=== PATIENT | female | born 1960 | race African-American/Black ===

== ENCOUNTER 2016-09-30 14:45 | Emergency (ER) | payer MEDICAID, OTHER ==
[~2016-09-30] VITALS: Ht 172.7 cm; Wt 61.2 kg
[~2016-09-30 14:45] MED LIST: KEFLEX500 MG ORAL; TRAMADOL HCL50 MG ORAL
[2016-09-30] MEDS ORDERED: NKM (15:10)
--- NOTE | 2016-09-30 16:04 | Emergency Room Report ---
History of Present Illness General Chief Complaint: General Complaint Source: Patient Present Illness HPI This patient left prior to being seen/evaluated. Allergies: Coded Allergies: No Known Allergies (Unverified , 03/02/15) Nursing Documentation-[facility] Past Medical History: No Stated History Physical Exam Vital Signs Date Time Temp Pulse Resp B/P Pulse Ox O2 Delivery O2 Flow Rate FiO2 09/30/16 15:06 98.4 68 16 103/65 100 Room Air Medical Decision Making PA Attestation Dr. Mcgowan is my supervising Physician whom patient management has been discussed with. ER Course This patient left prior to being seen/evaluated. Last Vital Signs Date Time Temp Pulse Resp B/P Pulse Ox O2 Delivery O2 Flow Rate FiO2 09/30/16 15:06 98.4 68 16 103/65 100 Room Air Disposition: LEFT W/OUT BEING SEEN Condition: Unknown Indira Lugo Sep 30, 2016 16:04
[2016-09-30 22:52] VITALS: BP_SYST 1; BP_SYST 103; BP_DIAS 1; BP_DIAS 65
== END 2016-09-30 15:45 | disposition left against medical advice (07) ==
LOC: EMR 15:40
DX: Z53.21 Procedure and treatment not carried out due to patient leaving prior to being seen by health care provider (principal)
CPT/HCPCS: 99281

== ENCOUNTER 2019-03-09 16:22 | Emergency (ER) | payer MEDICAID ==
[~2019-03-09] VITALS: Ht 170.2 cm; Wt 56.7 kg
[~2019-03-09 16:22] MED LIST changes: +NKM
--- NOTE | 2019-03-09 16:27 | NUR ---
ED Nurse Note: CALLED PT FROM WAITING ROOM. PT IN RESTROOM.
[2019-03-09 16:40] VITALS: BP 102/55
--- NOTE | 2019-03-09 16:40 | NUR ---
ED Nurse Note: Patient walked in to ER due to painful lymph nodes on her left groin. She also stated that she's having an upper abdominal sharp pain. Afebrile. Alert and oriented, verbally responsive.
[2019-03-09] MEDS ORDERED: Ketorolac 30mg Inj IV ONE (17:15)
[2019-03-09] MEDS ORDERED: Isovue-300 100ml vial INJ PRN (17:15)
--- NOTE | 2019-03-09 17:25 | NUR ---
ED Nurse Note: Oral contrast finished at this time.
[2019-03-09 17:34] LABS: ANION GAP 8 mmol/L (5-15); BLOOD UREA NITROGEN 12 mg/dL (7-18); CALCIUM 9.9 MG/DL (8.5-10.1); CARBON DIOXIDE 27 MMOL/L (21-32); CHLORIDE 104 MMOL/L (98-107); CREATININE 0.8 MG/DL (0.55-1.30); POTASSIUM 3.6 MMOL/L (3.5-5.1); SODIUM 139 MMOL/L (136-145)
[2019-03-09 17:39] LABS: ALANINE AMINOTRANSFERASE 21 U/L (12-78); ALBUMIN 4.5 G/DL (3.4-5.0); ALBUMIN/GLOBULIN RATIO 1.1 (1.0-2.7); ALKALINE PHOSPHATASE 73 U/L (46-116); ASPARTATE AMINO TRANSFERASE 19 U/L (15-37); BILIRUBIN,TOTAL 0.5 MG/DL (0.2-1.0)
[2019-03-09 17:40] LABS: BASOPHILS % (AUTO) 1.3 % (0.0-2.0); HEMATOCRIT 36.8 % (37.0-47.0); HEMOGLOBIN 13.2 G/DL (12.0-16.0); LYMPHOCYTES % (AUTO) 40.1 % (20.0-45.0); MEAN CORPUSCULAR VOLUME 90 FL (80-99); NEUTROPHILS % (AUTO) 47.6 % (45.0-75.0); PLATELET COUNT 236 K/UL (150-450); RED CELL DISTRIBUTION WIDTH 10.1 % (11.6-14.8)
[2019-03-09 17:41] LABS: APPEARANCE,URINE CLEAR; BILIRUBIN, URINE NEGATIVE (NEGATIVE); COLOR,URINE YELLOW; GLUCOSE, URINE (UA) NEGATIVE (NEGATIVE); KETONES,URINE NEGATIVE (NEGATIVE); LEUKOCYTE ESTERASE ,URINE 1+ (NEGATIVE); NITRITE,URINE NEGATIVE (NEGATIVE); PH,URINE 6.5 (4.5-8.0); PROTEIN,URINE NEGATIVE (NEGATIVE); UROBILINOGEN,URINE 1 MG/DL (0.0-1.0)
--- NOTE | 2019-03-09 18:16 | Emergency Room Report ---
History of Present Illness General Chief Complaint: Skin Rash/Abscess Source: Patient Present Illness HPI 58 YO female presents to the ED C/O 04/04 in severity bilateral inguinal pain , Left greater than right with palpable swelling, and abdominal pain x 2 weeks. Progressive onset of pain. Denies suspicion of STI and states she is celibate. Reports fevers and chills. She also reports Nausea and weight loss. Denies vomiting, Diarrhea or constipation. Denies dysuria, Hematuria or frequency. Denies recent travel or ill contacts. Denies vaginal d/c. She is in 5th year of menopause and has both uterus and ovaries. Denies external genital lesions or rashes. Pt. denies low back pain. No other aggravating or relieving factors. She Denies PMhx. and states she is normally very healthy. She denies trauma or fall. Reports she does work out regularly. Allergies: Coded Allergies: No Known Allergies (Unverified , 03/02/15) Patient History Past Medical History: see triage record Past Surgical History: none Pertinent Family History: none Last Menstrual Period: 2017 Now: No Reviewed Nursing Documentation: PMH: Agreed; PSxH: Agreed Nursing Documentation-PMH Past Medical History: No Stated History Review of Systems All Other Systems: negative except mentioned in HPI Physical Exam Vital Signs Date Time Temp Pulse Resp B/P (MAP) Pulse Ox O2 Delivery O2 Flow Rate FiO2 03/09/19 16:39 99.0 64 16 102/55 (71) 98 Room Air Medical Decision Making PA Attestation Dr. Shen is my supervising Physician whom patient management has been discussed with. Diagnostic Impression: Primary Impression: Abdominal pain Qualified Codes: R10.30 - Lower abdominal pain, unspecified Additional Impression: Inguinal adenopathy ER Course 58 YO female presents to the ED C/O 04/04 in severity bilateral inguinal pain , Left greater than right with palpable swelling, and abdominal pain x 2 weeks. Progressive onset of pain. Denies suspicion of STI and states she is celibate. Reports fevers and chills. She also reports Nausea and weight loss. Denies vomiting, Diarrhea or constipation. Denies dysuria, Hematuria or frequency. Denies recent travel or ill contacts. Denies vaginal d/c. She is in 5th year of menopause and has both uterus and ovaries. Denies external genital lesions or rashes. Pt. denies low back pain. No other aggravating or relieving factors. She Denies PMhx. and states she is normally very healthy. She denies trauma or fall. Reports she does work out regularly. Ddx considered but are not limited to Diverticulitis, acute appy, diarrhea,UC, PUD, GE, pancreatitis, gallstone, ovarian torsion, ectopic , PID tubo-ovarian abscess. Vital signs: are WNL, pt. is afebrile H&PE are most consistent with [ ] ORDERS: -CBC, CMP, LIPASE: WNL -UA: WNL -LDH: WNL -TSH: WNL -CT Abdomen and Pelvis with Contrast IV and Oral. ED INTERVENTIONS: -Toradol IV - DISCHARGE: At this time pt. is stable for d/c to home. Will provide printed patient care instructions, and any necessary prescriptions. Care plan and follow up instructions have been discussed with the patient prior to discharge. CT/MRI/US Diagnostic Results CT/MRI/US Diagnostic Results : Imaging Test Ordered: CT Abdomen and Pelvis with Contrast IV and Oral Impression " No GI or urinary tract obstruction. Unremarkable appendix. Uterine calcifications, likely small fibroids" per official radiology report- Please see report for specific details. Last Vital Signs Date Time Temp Pulse Resp B/P (MAP) Pulse Ox O2 Delivery O2 Flow Rate FiO2 03/09/19 17:45 98.5 03/09/19 16:40 16 102/55 98 Room Air 03/09/19 16:39 64 Disposition: HOME, SELF-CARE Condition: Stable Referrals: [facility],REFERRING (PCP) Patient Instructions: Abdominal Pain, Adult, [id number], Lymphadenopathy Additional Instructions: Take medications as directed. Follow up with a Primary Care Provider or NURSING ASSISTANT in 3-5 days, even if your symptoms have resolved. --Please review list of primary care clinics, if you do not already have a primary care provider Return sooner to ED if new symptoms occur, or current symptoms become worse. - Please note that this Emergency Department Report was dictated using XML[employer] photo technology software, occasionally this can lead to erroneous entry secondary to interpretation by the dictation equipment. Indira Lugo Mar 09, 2019 18:16
--- NOTE | 2019-03-09 18:40 | NUR ---
ED Nurse Note: Went down for CT Abdomen pelvis with contrast.
--- NOTE | 2019-03-09 18:50 | NUR ---
ED Nurse Note: Came back from CT.
[2019-03-09 18:54] VITALS: BP 112/56
--- NOTE | 2019-03-09 19:33 | Diagnostic Imaging Report ---
Clinical Indication: Abdominal pain, painful lymph nodes in the left groin, upper abdominal sharp pain Technique: Patient given oral contrast. IV administration nonionic contrast. Venous phase spiral acquisition obtained through the abdomen and pelvis. Multiplanar reconstructions were generated. Total dose length product 565 mGycm. CTDIvol(s) 11 mGy. Dose reduction achieved using automated exposure control Comparison: none Findings: The appendix is normal. No evidence of diverticulosis or diverticulitis. Ingested contrast has not completely traversed the small bowel. However, no nses small bowel distention is evident and there is no evidence of small bowel wall thickening. No free or loculated intraperitoneal gas or fluid is evident. The distal esophagus, stomach, and duodenum are unremarkable. The liver demonstrates a somewhat unusual perfusion pattern, probably related to phase of contrast administration. No focal abnormality. The gallbladder, bile ducts, pancreas, spleen, adrenals, kidneys are unremarkable. No renal or ureteral calculi, hydronephrosis, or either ureter demonstrated. The bladder is unremarkable. The uterus is heterogeneous and contains calcifications, consistent with fibroid changes. The bladder is unremarkable. No pelvic, retroperitoneal, mesenteric, or inguinal adenopathy demonstrated. There is a section scar demonstrated. The included lung bases are clear. The bones are unremarkable. Impression: No definite acute abnormality Fibroid uterus Incidental finding of section scar This agrees with the preliminary interpretation provided overnight by [facility] teleradiology service. The CT scanner at [facility] is accredited by the [employer] and the scans are performed using protocols designed to limit radiation exposure to as low as reasonably achievable to attain images of sufficient resolution adequate for diagnostic evaluation.
[2019-03-09] MEDS ORDERED: NAPROXEN375 M2 ORAL (20:09)
[2019-03-09 20:25] VITALS: BP 118/75
--- NOTE | 2019-03-09 20:25 | NUR ---
ED Nurse Note: pt cleared to be d/c per ER provider, pt discharge and aftercare instruction provided w/ prescription, pt education done via discussion and handout, pt advised to follow up with pcp or return to ed if changes in condition, pt verbalized understanding, vss, ambulatory w/ steady gait, iv d/c and id band removed, pt left w/ all belongings.
== END 2019-03-09 20:25 | disposition home or self-care (01) ==
LOC: EMR 17:10
DX: R10.30 Lower abdominal pain, unspecified (principal); R59.0 Localized enlarged lymph nodes
CPT/HCPCS: 36415; 74177; 80053; 81003; 83615; 83690; 84443; 85025; 96374; 99284; J1885; Q9967